=== PATIENT | male | born 1990 | race African-American/Black ===

== ENCOUNTER 2016-08-24 11:32 | Emergency (ER) | payer OTHER ==
[~2016-08-24] VITALS: Ht 185.4 cm; Wt 70.9 kg
[~2016-08-24 11:32] MED LIST: AZITHROMYCIN250 MG1 PO; FLEXERIL5 MG PO; NAPROSYN500 MG PO; NORCO 5/3251 TABLET PO; PROAIR HFA8.5 GM IH; ROBITUSSIN AC,T10 ML PO; TESSALON PERLE100 MG PO
[2016-08-24 11:33] VITALS: BP 122/73
[2016-08-24] MEDS ORDERED: MOTRIN800 MG PO (12:54)
[2016-08-24] MEDS ORDERED: PEN-VEE K,VEET500 MG PO (12:54)
[2016-08-24] MEDS ORDERED: ULTRAM50 MG PO (12:54)
== END 2016-08-24 13:11 | disposition home or self-care (01) ==
LOC: EME 11:32
DX: S02.5XXA Fracture of tooth (traumatic), initial encounter for closed fracture (principal)
CPT/HCPCS: 99281; 99283